=== PATIENT | female | born 1995 | race Caucasian/White ===

== ENCOUNTER 2017-08-16 14:00 | Outpatient (RCR) | payer OTHER | END 2017-08-19 15:09 | LOC: WSPT 14:00 | DX: I00 Rheumatic fever without heart involvement (principal); M79.7 Fibromyalgia; R26.89 Other abnormalities of gait and mobility; M24.80 Other specific joint derangements of unspecified joint, not elsewhere classified ==

== ENCOUNTER → 2018-03-21 | Outpatient (CLI) | payer OTHER | LOC: MC.RAD 10:55 | DX: N63.11 Unspecified lump in the right breast, upper outer quadrant (principal) ==

== ENCOUNTER → 2018-11-04 | Outpatient (CLI) | payer OTHER | LOC: COL.RAD 10:40 | DX: E72.12 Methylenetetrahydrofolate reductase deficiency (principal); Z82.49 Family history of ischemic heart disease and other diseases of the circulatory system | CPT/HCPCS: Q9967 ==

== ENCOUNTER → 2018-12-08 | Outpatient (CLI) | payer OTHER | LOC: COL.RAD 07:42 | DX: R11.2 Nausea with vomiting, unspecified (principal) | CPT/HCPCS: A9541 ==